=== PATIENT | female | born 1960 | race Caucasian/White ===

== ENCOUNTER 2016-11-02 09:40 | Emergency (ER) | payer SELFPAY ==
[~2016-11-02] VITALS: Ht 170.2 cm; Wt 55.0 kg
[~2016-11-02 09:40] MED LIST: DILA4TAB2 PO; GABA600T PO; MELO-1 PO
[2016-11-02 09:44] VITALS: BP 123/70; PULSE 71; RESP 14; TEMP 97.8; O2SAT 99
--- NOTE | 2016-11-02 10:04 | PD ---
HPI Chief Complaint: Skin Problem Time Seen by Provider: 09:58 Travel History International Travel<30 days: No Contact w/Intl Traveler<30days: No Traveled to known affect area: No History of Present Illness HPI This is a 56-year-old female who presents to the emergency department with 3 days of swelling and pain in her right thumb, constant, moderate severity, worsening. She denies any fevers or chills. She thinks she got bit by a caterpillar 3 days ago. She has no history of diabetes or IV drug use. PFSH Past Medical History Arthritis: Yes Asthma: No Anxiety: Yes Depression: Yes Cardiovascular Problems: No COPD: No Cerebrovascular Accident: No Diabetes: No Diminished Hearing: No Endocrine: No GERD: No Genitourinary: No Headaches: No Hepatitis: Yes (+ HEP C) Hiatal Hernia: No Immune Disorder: No Musculoskeletal: Yes ("herniated discs in back", CHRONIC BACK PAIN) Neurologic: Yes Psychiatric: Yes Reproductive: No Respiratory: No Immunizations Current: Yes Migraines: No Seizures: No Sleep Apnea: No Ulcer: No Tetanus Vaccination: Unknown Influenza Vaccination: Yes ?: Not Menopausal: Yes : 2 Para: 0 Miscarriage: 1 : 1 Ovarian Cysts: Yes Tubal Ligation: Yes (1998) Past Surgical History Surgical History: No Previous Surgery Abdominal Surgery: No Cardiac Surgery: No Ear Surgery: No Eye Surgery: No Gynecologic Surgery: No Oral Surgery: No Thoracic Surgery: No Other Surgery: Yes Social History Alcohol Use: No Tobacco Use: Yes (07/25 PPD) Substance Use: No Allergies-Medications (Allergen,Severity, Reaction): Coded Allergies: No Known Allergies (Unverified , 11/02/16) Reported Meds & Prescriptions Reported Meds & Active Scripts Active No Active Prescriptions or Reported Medications Review of Systems Except as stated in HPI: all other systems reviewed are Neg Physical Exam Narrative GENERAL:Well appearing, no acute distress SKIN: Swelling and fullness involving the lateral aspect of the right thumb with erythema adjacent to the nail bed HEAD: Atraumatic. Normocephalic. EYES: Pupils equal and round. No injection or drainage. ENT: Moist mucous membranes NECK: Trachea midline. CARDIOVASCULAR: Regular rate and rhythm. No murmur appreciated. Normal capillary refill in the right thumb. RESPIRATORY: Clear to auscultation. Breath sounds equal bilaterally. GASTROINTESTINAL: Abdomen soft, non-tender, nondistended. MUSCULOSKELETAL: Full painless range of motion of the right interphalangeal joint. No swelling on the flexor surface of the right thumb. NEUROLOGICAL: Awake and alert. No obvious cranial nerve deficits. Moving all extremities. PSYCHIATRIC: Appropriate mood and affect; insight and judgment normal. Data Data Last Documented VS Vital Signs Date Time Temp Pulse Resp B/P Pulse Ox O2 Delivery O2 Flow Rate FiO2 11/02/16 10:00 17 11/02/16 09:44 97.8 71 123/70 99 Room Air Orders Lidocaine Pf 1% Inj (Xylocaine-Mpf 1% In (11/02/16 10:15) MDM Medical Decision Making Medical Screen Exam Complete: Yes Emergency Medical Condition: Yes Differential Diagnosis Paronychia, felon, flexor tenosynovitis Narrative Course This is a 56-year-old female who presents to the emergency department with pain and swelling of her thumb and a physical exam consistent with a paronychia. She has no signs or symptoms of flexor` tenosynovitis. Incision and drainage was performed. Patient will be discharged with oral antibiotics and referred to hand surgery as needed. Diagnosis Primary Impression: Paronychia Qualified Code: L03.011 - Paronychia, right Referrals: Giuliano Calderón MD Patient Instructions: General Instructions Additional Instructions: If you develop fever, chills, increasing swelling of your finger, severe pain or inability to bend your thumb return to the emergency department. follow up with a hand doctor if your symptoms are not improved. Complete your course of antibiotics. Med/Other Pt SpecificInfo: Prescription(s) given Scripts Sulfamethoxazole-Trimethoprim (Bactrim DS)800-160 Mg Tab1 Tab PO BID #14 TAB Ref 0 Prov:Kyra Harkins MD 11/02/16 Cephalexin (Keflex)500 Mg [id number] Mg PO Q12H 7 Days Ref 0 Prov:Kyra Harkins MD 11/02/16 Disposition: 01 DISCHARGE HOME Condition: Stable Kyra Harkins MD Nov 02, 2016 10:04
[2016-11-02] MEDS ORDERED: LIDOCAINE HCL 1% PF 30 ML VIAL NERV BLOCK ONE (10:15)
--- NOTE | 2016-11-02 10:46 | PD ---
Physical Exam Date Seen by Provider: Nov 02, 2016 Time Seen by Provider: 10:45 Narrative I was asked by Dr. Harkins to incise and drain paryonchia to the patient's right lateral nailbed. Patient gives verbal consent for procedure. Please see Dr. Harkins's note for further history and physical. Data Data Last Documented VS Vital Signs Date Time Temp Pulse Resp B/P Pulse Ox O2 Delivery O2 Flow Rate FiO2 11/02/16 10:00 17 11/02/16 09:44 97.8 71 123/70 99 Room Air Orders Lidocaine Pf 1% Inj (Xylocaine-Mpf 1% In (11/02/16 10:15) MDM Medical Record Reviewed: Yes Supervised Visit with GEOVANNI: No Procedures Procedure Narrative INCISION AND DRAINAGE OF ABSCESS: The area was prepped and was sterilely draped. A digital block with 1% lidocaine] mL was used to anesthetize the area. The area was properly anesthetized. A number 11 scalpel was used to make a 0.5 -cm incision across the area of the abscess. Cultures were obtained. The abscess was drained an irrigated with normal saline. Sterile dressing applied. Scripts No Active Prescriptions or Reported Meds Julee Rodriguez Nov 02, 2016 10:46
[2016-11-02] MEDS ORDERED: BACT800T5 PO (10:50)
[2016-11-02] MEDS ORDERED: CEPH-460 PO (10:50)
== END 2016-11-02 11:02 | disposition home or self-care (01) ==
LOC: NEPD 09:40
DX: L03.011 Cellulitis of right finger (principal); F41.9 Anxiety disorder, unspecified; F32.9 Major depressive disorder, single episode, unspecified; B95.62 Methicillin resistant Staphylococcus aureus infection as the cause of diseases classified elsewhere
CPT/HCPCS: 26010; 86403; 87070; 87186

== ENCOUNTER 2016-12-10 06:37 | Emergency (ER) | payer SELFPAY ==
[~2016-12-10] VITALS: Ht 170.2 cm; Wt 55.6 kg
[~2016-12-10 06:37] MED LIST changes: +BACT800T5 PO; +CEPH-460 PO; -DILA4TAB2 PO; -GABA600T PO; -MELO-1 PO
[2016-12-10 06:47] VITALS: BP 103/71; PULSE 69; RESP 14; TEMP 98.2; O2SAT 96
[2016-12-10] MEDS ORDERED: GABA100C4 PO (07:46)
[2016-12-10] MEDS ORDERED: DILA4TAB2 PO (07:46)
[2016-12-10] MEDS ORDERED: MELO-1 PO (07:46)
[2016-12-10] MEDS ORDERED: BACT800T5 PO (08:10)
== END 2016-12-10 06:53 | disposition left against medical advice (07) ==
LOC: PHED 06:37
DX: Z53.20 Procedure and treatment not carried out because of patient's decision for unspecified reasons (principal)
CPT/HCPCS: 99281

== ENCOUNTER 2016-12-10 07:27 | Emergency (ER) | payer SELFPAY ==
[~2016-12-10] VITALS: Ht 170.2 cm; Wt 56.0 kg
[2016-12-10 07:30] VITALS: BP 119/73; PULSE 67; RESP 15; TEMP 98; O2SAT 97
[2016-12-10] MEDS ORDERED: DILA4TAB2 PO (07:46)
[2016-12-10] MEDS ORDERED: GABA100C4 PO (07:46)
[2016-12-10] MEDS ORDERED: MELO-1 PO (07:46)
[2016-12-10 07:56] LABS: GLUCOSE,URINE NEG (NEG); KETONE, URINE NEG (NEG); PH, URINE 5.5 (5.0-8.5)
[2016-12-10 07:57] LABS: BLOOD, URINE MOD (NEG); NITRITE,URINE POS (NEG)
[2016-12-10 08:04] LABS: METHOD OF COLLECTION CLEAN CATCH; URINE COLOR YELLOW (YELLW/STRAW)
[2016-12-10 08:05] LABS: BACTERIA, URINE MANY /hpf; COMMENT (UR) CULTURE INDICATED; CULTURE IF INDICATED CULTURE INDICATED; SQUAMOUS EPITHELIAL CELL URINE > 8 /hpf (0-5)
[2016-12-10] MEDS ORDERED: BACT800T5 PO (08:10)
--- NOTE | 2016-12-10 08:10 | PD ---
HPI Chief Complaint: Complaint Time Seen by Provider: 08:04 Travel History International Travel<30 days: No Contact w/Intl Traveler<30days: No Traveled to known affect area: No History of Present Illness HPI 56-year-old female complains of dysuria and frequency. Patient states that the symptoms started a week ago. Patient denies any fever chills. Patient states that she has some mild aching pain low back area. Patient denies any headache. Patient denies any chest pain or shortness of breath. Patient denies abdominal pain. Patient denies vaginal discharge or bleeding. Patient denies any chance of being . PFSH Past Medical History Arthritis: Yes Asthma: No Anxiety: Yes Depression: Yes Cardiovascular Problems: No COPD: No Cerebrovascular Accident: No Diabetes: No Diminished Hearing: No Endocrine: No GERD: No Genitourinary: No Headaches: No Hepatitis: Yes (+ HEP C) Hiatal Hernia: No Immune Disorder: No Musculoskeletal: Yes ("herniated discs in back", CHRONIC BACK PAIN) Neurologic: Yes Psychiatric: Yes Reproductive: No Respiratory: No Immunizations Current: Yes Migraines: No Seizures: No Sleep Apnea: No Ulcer: No Influenza Vaccination: Yes ?: Not Menopausal: Yes : 2 Para: 0 Miscarriage: 1 : 1 Ovarian Cysts: Yes Tubal Ligation: Yes (1998) Past Surgical History Abdominal Surgery: No Cardiac Surgery: No Ear Surgery: No Eye Surgery: No Gynecologic Surgery: No Oral Surgery: No Thoracic Surgery: No Other Surgery: Yes Social History Alcohol Use: No Tobacco Use: Yes (/2 PPD) Substance Use: No Allergies-Medications (Allergen,Severity, Reaction): Coded Allergies: *MDRO Multi-Drug Resistant Organism (Verified Adverse Reaction, Unknown, ) 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/16 Reported Meds & Prescriptions Reported Meds & Active Scripts Active Bactrim DS (Sulfamethoxazole-Trimethoprim) 800-160 Mg Tab 1 Tab PO BID Reported Gabapentin 100 Mg Cap 100 Mg PO DAILY Dilaudid (Hydromorphone HCl) 4 Mg Tab 4 Mg PO Q6H PRN Meloxicam 15 Mg Tab 15 Mg PO DAILY Review of Systems General / Constitutional: No: Fever Eyes: No: Visual changes HENT: No: Headaches Cardiovascular: No: Chest Pain or Discomfort Respiratory: No: Shortness of Breath Gastrointestinal: No: Abdominal Pain Genitourinary: Positive: Frequency, Dysuria Musculoskeletal: No: Pain Skin: No Rash Neurologic: No: Weakness Psychiatric: No: Depression Endocrine: No: Polydipsia Hematologic/Lymphatic: No: Easy Bruising Physical Exam Narrative GENERAL: Well-nourished, well-developed patient. SKIN: Focused skin assessment warm/dry. HEAD: Normocephalic. EYES: No scleral icterus. No injection or drainage. NECK: Supple, trachea midline. No JVD or lymphadenopathy. CARDIOVASCULAR: Regular rate and rhythm without murmurs, gallops, or rubs. RESPIRATORY: Breath sounds equal bilaterally. No accessory muscle use. GASTROINTESTINAL: Abdomen soft, non-tender, nondistended. MUSCULOSKELETAL: No cyanosis, or edema. BACK: Nontender without obvious deformity. No CVA tenderness. Neurologic exam normal. Data Data Last Documented VS Vital Signs Date Time Temp Pulse Resp B/P Pulse Ox O2 Delivery O2 Flow Rate FiO2 12/10/16 07:30 98.0 67 15 119/73 97 Orders Urinalysis - C+S If Indicated (12/10/16 07:36) Urine Culture (12/10/16 07:40) Labs Laboratory Tests Test 12/10/16 07:40 Urine Collection Type CLEAN CATCH Urine Color YELLOW Urine Turbidity MOD Urine pH 5.5 Urine Specific [place] 1.015 Urine Protein TRACE mg/dL Urine Glucose (UA) NEG mg/dL Urine Ketones NEG mg/dL Urine Occult Blood MOD Urine Nitrite POS Urine Bilirubin NEG Urine Leukocyte Esterase SMALL Urine RBC 4-9 /hpf Urine WBC 20-24 /hpf Urine WBC Clumps FEW Urine Squamous Epithelial > 8 /hpf Cells Urine Amorphous Sediment FEW Urine Bacteria MANY /hpf Microscopic Urinalysis Comment CULTURE INDICATED Urine Collection Time 0740 [facility] Medical Decision Making Medical Screen Exam Complete: Yes Emergency Medical Condition: Yes Interpretation(s) 8:11 AM. UA positive with WBC and bacteria. Differential Diagnosis Differential diagnosis including UTI, pyelonephritis, nephrolithiasis. Narrative Course 56-year-old female with dysuria and frequency. Diagnosis Primary Impression: UTI (urinary tract infection) Qualified Code: N30.00 - Acute cystitis without hematuria Additional Instructions: Bactrim DS as directed. Follow-up with personal physician. Return if worse. Med/Other Pt SpecificInfo: Prescription(s) given Scripts Sulfamethoxazole-Trimethoprim (Bactrim DS)800-160 Mg Tab1 Tab PO BID #14 TAB Prov:Patrick Cross MD 12/10/16 Disposition: 01 DISCHARGE HOME Condition: Stable Patrick Cross MD December 10, 2016 08:10
== END 2016-12-10 08:19 | disposition home or self-care (01) ==
LOC: PHED 07:27
DX: N30.00 Acute cystitis without hematuria (principal); B96.29 Other Escherichia coli [E. coli] as the cause of diseases classified elsewhere; F17.210 Nicotine dependence, cigarettes, uncomplicated; F41.8 Other specified anxiety disorders; Z86.19 Personal history of other infectious and parasitic diseases
CPT/HCPCS: 81001; 87077; 87086; 87186; 99283

== ENCOUNTER 2016-12-17 08:52 | Emergency (ER) | payer SELFPAY ==
[~2016-12-17] VITALS: Ht 170.2 cm; Wt 54.0 kg
[~2016-12-17 08:52] MED LIST changes: -CEPH-460 PO; +DILA4TAB2 PO; +GABA100C4 PO; +MELO-1 PO
[2016-12-17 08:54] VITALS: BP 113/84; PULSE 69; RESP 16; TEMP 98.3; O2SAT 98
--- NOTE | 2016-12-17 09:26 | PD ---
HPI . Right eye swelling Chief Complaint: Eye Problems/Injury Time Seen by Provider: 09:18 Travel History International Travel<30 days: No Contact w/Intl Traveler<30days: No Traveled to known affect area: No History of Present Illness HPI Patient presents complaining with itching and swelling of her right upper eyelid. Nurse got the history that it started yesterday. The patient told me that she awakened with it this morning. Nonetheless, it is getting better. She has treated it with a warm compress which seems to have helped. She thinks that she may have been bitten by a bug. She does not have any discharge from her eye and she does not have any visual complaints. PFSH Past Medical History Arthritis: Yes Asthma: No Anxiety: Yes Depression: Yes Cardiovascular Problems: No COPD: No Cerebrovascular Accident: No Diabetes: No Diminished Hearing: No Endocrine: No Gastrointestinal Disorders: No GERD: No Genitourinary: No Headaches: No Hepatitis: Yes (+ HEP C) Hiatal Hernia: No Immune Disorder: No Implanted Vascular Access Dvce: No Musculoskeletal: Yes ("herniated discs in back", CHRONIC BACK PAIN) Neurologic: Yes Psychiatric: Yes Reproductive: No Respiratory: No Immunizations Current: Yes Migraines: No Seizures: No Sleep Apnea: No Ulcer: No ?: Not LMP: MENOPAUSAL Menopausal: Yes : 2 Para: 0 Miscarriage: 1 : 1 Ovarian Cysts: Yes Tubal Ligation: Yes (1998) Past Surgical History Abdominal Surgery: No Cardiac Surgery: No Ear Surgery: No Eye Surgery: No Gynecologic Surgery: No Neurologic Surgery: No Oral Surgery: No Thoracic Surgery: No Other Surgery: Yes Social History Alcohol Use: No Tobacco Use: Yes (07/25 PPD) Substance Use: No Allergies-Medications (Allergen,Severity, Reaction): Coded Allergies: *MDRO Multi-Drug Resistant Organism (Verified Adverse Reaction, Unknown, ) 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 SKIN: Warm and dry. HEAD: Atraumatic. Normocephalic. EYES: Pupils equal and round. She has swelling of the upper eyelid. I do not see a stye. I have everted the lid. She does appear to have a bug bite on the lid. NECK: Trachea midline. CARDIOVASCULAR: Regular rate and rhythm. RESPIRATORY: No accessory muscle use. MUSCULOSKELETAL: No obvious deformities. No edema. NEUROLOGICAL: Awake and alert. No obvious cranial nerve deficits. Motor grossly within normal limits. Normal speech. PSYCHIATRIC: Appropriate mood and affect; insight and judgment normal. Data Data Last Documented VS Vital Signs Date Time Temp Pulse Resp B/P Pulse Ox O2 Delivery O2 Flow Rate FiO2 12/17/16 08:54 98.3 69 16 113/84 98 MDM Medical Decision Making Medical Screen Exam Complete: Yes Emergency Medical Condition: Yes Differential Diagnosis My differential diagnosis of eyelid swelling includes but is not limited to allergic reaction, stye, cellulitis Narrative Course Patient presents with itching and swelling of her right upper eyelid. Exam is typical of a localized reaction. Diagnosis Primary Impression: Local reaction to insect sting Qualified Code: T63.481A - Local reaction to insect sting, accidental or unintentional, initial encounter Patient Instructions: General Instructions, Insect Bite or Sting (DC) Additional Instructions: Benadryl, 2 every 4 hours as needed for itching and swelling. Cool compresses to the eye as needed for swelling. Disposition: 01 DISCHARGE HOME Condition: Stable Lesia English MD December 17, 2016 09:26
== END 2016-12-17 09:42 | disposition home or self-care (01) ==
LOC: PHED 08:52
DX: H02.841 Edema of right upper eyelid (principal); T63.481A Toxic effect of venom of other arthropod, accidental (unintentional), initial encounter; F17.210 Nicotine dependence, cigarettes, uncomplicated; W57.XXXA Bitten or stung by nonvenomous insect and other nonvenomous arthropods, initial encounter
CPT/HCPCS: 99282

== ENCOUNTER 2016-12-26 07:45 | Emergency (ER) | payer SELFPAY ==
[~2016-12-26] VITALS: Ht 170.2 cm; Wt 55.1 kg
[2016-12-26 07:49] VITALS: BP 118/86; PULSE 72; RESP 16; TEMP 98.7; O2SAT 99
[2016-12-26 08:12] LABS: GLUCOSE,URINE NEG (NEG); KETONE, URINE NEG (NEG)
[2016-12-26] MEDS ORDERED: MACR100C2 PO (08:16)
--- NOTE | 2016-12-26 08:16 | PD ---
HPI Chief Complaint: Complaint Time Seen by Provider: 08:08 Travel History International Travel<30 days: No Contact w/Intl Traveler<30days: No Traveled to known affect area: No History of Present Illness HPI So 56 year-old woman presents emergent department complaining of urinary symptoms. She was seen December 10, fell 2 weeks ago, with urinary symptoms. She has a urinalysis that was positive and a culture likely Escherichia coli. She was placed on Bactrim. Ultimately her Escherichia coli was resistant to Bactrim. Patient took about 4 pills before inadvertently been antibiotics [place] state. She presents back to the emergency department she still having burning with urination frequency and some suprapubic pressure. No vaginal discharge or vaginal bleeding. No fevers or chills. No back pain or abdominal pain. 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 SKIN: Focused skin assessment warm/dry. HEAD: Atraumatic. Normocephalic. CARDIOVASCULAR: Regular rate and rhythm. No murmur appreciated. RESPIRATORY: No accessory muscle use. Clear to auscultation. Breath sounds equal bilaterally. GASTROINTESTINAL: Abdomen soft, non-tender, nondistended. Hepatic and splenic margins not palpable. No CVA tenderness to percussion. MUSCULOSKELETAL: No obvious deformities. Data Data Last Documented VS Vital Signs Date Time Temp Pulse Resp B/P Pulse Ox O2 Delivery O2 Flow Rate FiO2 12/26/16 07:49 98.7 72 16 118/86 99 Orders Urinalysis - C+S If Indicated (12/26/16 08:00) Nitrofurantoin Monohyd Macrocr (Macrobid (12/26/16 08:30) Urine Culture (12/26/16 08:02) Labs Laboratory Tests Test 12/26/16 08:02 Urine Color YELLOW Urine Turbidity HAZY Urine pH 6.0 Urine Specific [place] 1.024 Urine Protein TRACE mg/dL Urine Glucose (UA) NEG mg/dL Urine Ketones NEG mg/dL Urine Occult Blood MOD Urine Nitrite POS Urine Bilirubin NEG Urine Leukocyte Esterase TRACE Urine RBC 4-9 /hpf Urine WBC 9-14 /hpf Urine Squamous Epithelial 0-5 /hpf Cells Urine Bacteria MOD /hpf Urine Mucus FEW /lpf Microscopic Urinalysis Comment CULTURE INDICATED MDM Medical Decision Making Medical Screen Exam Complete: Yes Emergency Medical Condition: Yes Interpretation(s) UA: Pyuria, minimal hematuria, some bacteria. Differential Diagnosis UTI, cervicitis, other Narrative Course Medical decision-making n 56 old woman with UTI symptoms. Denies any vaginal discharge. Previous UA was positive for Escherichia coli resistant to Bactrim. We'll treat with Macrobid. Outpatient follow-up. Diagnosis Primary Impression: UTI (urinary tract infection) Additional Instructions: Take Macrobid as prescribed. Follow-up with your primary doctor in the next 2-4 days every not feeling completely well. Return to the emergency department for any new or worsening symptoms. Med/Other Pt SpecificInfo: Prescription(s) given Scripts Nitrofurantoin Monohydrate Macrocrystals (Macrobid)100 Mg [id number] Mg PO BID 7 Days Ref 0 Prov:Jose Gillis MD 12/26/16 Disposition: 01 DISCHARGE HOME Condition: Stable Jose Gillis MD Dec 26, 2016 08:16
[2016-12-26 08:21] LABS: BLOOD, URINE MOD (NEG); NITRITE,URINE POS (NEG)
[2016-12-26] MEDS ORDERED: NITROFURANTOIN MONOHYD MACROCR 100 MG CAP PO ONE (08:30)
[2016-12-26 08:53] LABS: MUCUS URINE FEW /lpf (OCC); URINE COLOR YELLOW (YELLW/STRAW)
[2016-12-26 08:54] LABS: SQUAMOUS EPITHELIAL CELL URINE 0-5 /hpf (0-5)
[2016-12-26 08:55] LABS: BACTERIA, URINE MOD /hpf; COMMENT (UR) CULTURE INDICATED; CULTURE IF INDICATED CULTURE INDICATED
== END 2016-12-26 08:51 | disposition home or self-care (01) ==
LOC: PHED 07:45
DX: N39.0 Urinary tract infection, site not specified (principal); B96.20 Unspecified Escherichia coli [E. coli] as the cause of diseases classified elsewhere; F17.210 Nicotine dependence, cigarettes, uncomplicated
CPT/HCPCS: 81001; 87077; 87086; 87186; 99283

== ENCOUNTER 2017-06-05 04:17 | Emergency (ER) | payer SELFPAY ==
[~2017-06-05] VITALS: Ht 170.2 cm; Wt 58.0 kg
[~2017-06-05 04:17] MED LIST changes: +DILA4TAB10 PO; -DILA4TAB2 PO; +MACR100C2 PO; -MELO-1 PO; +MELO15TA20 PO
[2017-06-05 04:27] VITALS: BP 144/80; PULSE 77; RESP 18; TEMP 100.6; O2SAT 97
[2017-06-05 04:34] VITALS: O2SAT 96
[2017-06-05] MEDS ORDERED: SODIUM CHLOR 0.9% 1000 ML INJ 1,000 ML IV ONE (04:45)
[2017-06-05] MEDS ORDERED: ACETAMINOPHEN 325 MG TAB PO ONE (04:45)
--- NOTE | 2017-06-05 04:47 | PD ---
HPI Chief Complaint: Cold / Flu Symptoms Time Seen by Provider: 04:28 Travel History International Travel<30 days: No Contact w/Intl Traveler<30days: No Traveled to known affect area: No History of Present Illness HPI The patient is a 56 year old female who presents to the [facility] emergency department with a history of cough, congestion, headache, and shortness of breath that began this morning. She had a fever with a tmax of 104. She has had n/v x1. She has had diarrhea x1 today. She has had a cough productive of yellow to wisdom phlegm. On review of systems, the patient denies having any worsening or new neck pain, chest pain, abdominal pain, urinary symptoms, or neurologic symptoms. She is followed by Dr. Herrera- Pain management in [place], [place]. [facility] Past Medical History Narrative Medical The patient's past medical history is significant for chronic pain, hepatitis C , IVDU- Dilaudid- last used IV one month ago. 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 Reported Meds & Prescriptions Reported Meds & Active Scripts Active Macrobid (Nitrofurantoin Monohydrate Macrocrystals) 100 Mg Capsule 100 Mg PO BID 7 Days Bactrim DS (Sulfamethoxazole-Trimethoprim) 800-160 Mg Tab 1 Tab PO BID Reported Gabapentin 100 Mg Cap 100 Mg PO DAILY Dilaudid (Hydromorphone HCl) 4 Mg Tab 4 Mg PO Q6H PRN Meloxicam 15 Mg Tab 15 Mg PO DAILY Review of Systems Except as stated in HPI: all other systems reviewed are Neg General / Constitutional: Positive: Fever Eyes: No: Visual changes HENT: Positive: Congestion, No: Headaches Cardiovascular: Positive: Dyspnea on exertion, No: Chest Pain or Discomfort Respiratory: Positive: Cough, Shortness of Breath Gastrointestinal: Positive: Nausea, Vomiting, Diarrhea, No: Abdominal Pain, Hematemesis, Hematochezia, Indigestion, Loss of Appetite Genitourinary: No: Dysuria Musculoskeletal: No: Pain Skin: No Rash Neurologic: No: Weakness Psychiatric: No: Depression Endocrine: No: Polydipsia Hematologic/Lymphatic: No: Easy Bruising Physical Exam Narrative General: The patient is a well-developed well-nourished female in no acute distress. Head and Neck exam: Head is normocephalic atraumatic. Eyes: EOMI, pupils are equal round and reactive to light. Nose: Midline septum with pink mucous membranes Mouth: Dentition unremarkable. Moist mucus membranes. Posterior oropharynx is not erythematous. No tonsillar hypertrophy. Uvula midline. Airway patent. Neck: No palpable lymphadenopathy. No nuchal rigidity. No thyromegaly. Cardiovascular: Regular rate and rhythm without murmurs, gallops, or rubs. No pulse deficit to the extremities on simultaneous auscultation and palpation of her radial artery. Lungs: Clear to auscultation bilaterally. No wheezes, rhonchi, or rales. Abdomen: Soft, without tenderness to palpation in all 4 quadrants of the abdomen. No guarding, rebound, or rigidity. Normal bowel sounds are audible. No tenderness on palpation of McBurney's point. Extremities: No clubbing, cyanosis, or edema. 2+ pulses in all 4 extremities. No calf tenderness on palpation. Back: No spinous process tenderness to palpation. No costovertebral angle tenderness to palpation. Neurologic Exam: Grossly nonfocal. Skin Exam: No rash noted. Intact skin that is warm and dry. Data Data Last Documented VS Vital Signs Date Time Temp Pulse Resp B/P (MAP) Pulse Ox O2 Delivery O2 Flow Rate FiO2 06/05/17 04:34 96 Room Air 06/05/17 04:30 80 18 06/05/17 04:27 100.6 144/80 (101) Orders Orders Electrocardiogram (06/05/17 04:31) Complete Blood Count With Diff (06/05/17 04:31) Comprehensive Metabolic Panel (06/05/17 04:31) Creatine Kinase (Cpk) (06/05/17 04:31) Ckmb (Isoenzyme) Profile (06/05/17 04:31) Troponin I (06/05/17 04:31) B-Type Natriuretic Peptide (06/05/17 04:31) Blood Culture (06/05/17 04:31) Urinalysis - C+S If Indicated (06/05/17 04:31) Westergren Sedimentation Rate (06/05/17 04:31) Magnesium (Mg) (06/05/17 04:31) Influenzae A/B Antigen (06/05/17 04:31) Chest, Single Ap (06/05/17 04:31) Iv Access Insert/Monitor (06/05/17 04:31) Ecg Monitoring (06/05/17 04:31) Oximetry (06/05/17 04:31) Lactic Acid Sepsis Protocol (06/05/17 04:31) Acetaminophen (Tylenol) (06/05/17 04:45) Sodium Chlor 0.9% 1000 Ml Inj (Ns 1000 M (06/05/17 04:45) Ct Pulmonary Angiogram (06/05/17 06:28) Labs Laboratory Tests Test 06/05/17 05:14 White Blood Count 3.6 TH/MM3 Red Blood Count 4.65 MIL/MM3 Hemoglobin 12.5 GM/DL Hematocrit 37.7 % Mean Corpuscular Volume 81.0 FL Mean Corpuscular Hemoglobin 26.9 PG Mean Corpuscular Hemoglobin Concent 33.2 % Red Cell Distribution Width 15.9 % Platelet Count 181 TH/MM3 Mean Platelet Volume 8.3 FL Neutrophils (%) (Auto) 76.5 % Lymphocytes (%) (Auto) 12.5 % Monocytes (%) (Auto) 10.6 % Eosinophils (%) (Auto) 0.1 % Basophils (%) (Auto) 0.3 % Neutrophils # (Auto) 2.8 TH/MM3 Lymphocytes # (Auto) 0.5 TH/MM3 Monocytes # (Auto) 0.4 TH/MM3 Eosinophils # (Auto) 0.0 TH/MM3 Basophils # (Auto) 0.0 TH/MM3 CBC Comment DIFF FINAL Differential Comment Erythrocyte Sedimentation Rate 23 mm/hr Urine Color YELLOW Urine Turbidity HAZY Urine pH 6.0 Urine Specific [place] 1.021 Urine Protein TRACE mg/dL Urine Glucose (UA) NEG mg/dL Urine Ketones NEG mg/dL Urine Occult Blood SMALL Urine Nitrite NEG Urine Bilirubin NEG Urine Urobilinogen LESS THAN 2.0 MG/DL Urine Leukocyte Esterase NEG Urine RBC 9 /hpf Urine WBC 2 /hpf Urine Squamous Epithelial Cells 4 /hpf Urine Amorphous Sediment RARE Urine Mucus FEW /lpf Microscopic Urinalysis Comment CULT NOT INDICATED Blood Urea Nitrogen 10 MG/DL Creatinine 0.81 MG/DL Random Glucose 89 MG/DL Total Protein 8.0 GM/DL Albumin 3.4 GM/DL Calcium Level 8.1 MG/DL Magnesium Level 2.0 MG/DL Alkaline Phosphatase 85 U/L Aspartate Amino Transf (AST/SGOT) 25 U/L Alanine Aminotransferase (ALT/SGPT) 19 U/L Total Bilirubin 0.3 MG/DL Sodium Level 138 MEQ/L Potassium Level 3.7 MEQ/L Chloride Level 105 MEQ/L Carbon Dioxide Level 25.4 MEQ/L Anion Gap 8 MEQ/L Estimat Glomerular Filtration Rate 74 ML/MIN Lactic Acid Level 0.7 mmol/L Total Creatine Kinase 83 U/L Troponin I LESS THAN 0.02 NG/ML B-Type Natriuretic Peptide 41 PG/ML MDM Medical Decision Making Medical Screen Exam Complete: Yes Emergency Medical Condition: Yes Medical Record Reviewed: Yes Interpretation(s) Last Impressions Chest X-Ray 06/05/17 0431 Signed Impressions: Service Date/Time: Monday, June 05, 2017 04:52 - CONCLUSION: Normal examination. Jose Nobles MD Differential Diagnosis Pneumonia, versus influenza, versus endocarditis, versus septic emboli Narrative Course During the course of the patients emergency department visit, the patients history, examination, and differential diagnosis were reviewed with the patient. The patient was placed on a quality assurance monitor chassis with oximetry and frequent blood pressure monitoring. The patient had IV access obtained and blood work sent for analysis. The patient had an ECG done on arrival that shows a sinus rhythm heart rate of 78, no acute ST segment elevation or depression. QRS duration is 92 ms, QTC 385 ms. The patient was initially provided Tylenol for fever at 650 by mouth 1, normal saline a 1 L IV fluid bolus The patients laboratory studies were reviewed and remarkable for a white count of 3.6, hemoglobin 12.5, platelets 181 with neutrophils 76.5, monocytes 10.6, sedimentation rate 23 decreased the likelihood of endocarditis, CMP is within normal limits except for a GFR 74, CPK 83, troponin I less than 0.02, BNP 41, lactic acid 0.7, urinalysis shows small occult blood, 9 RBCs. Influenza testing was negative. Radiology studies were reviewed and remarkable for a chest x-ray shows a normal examination. CTA to rule out PE was ordered. The patient decided that she did not want to wait any longer. The patient was instructed that her symptoms could be related to endocarditis, versus septic emboli, versus underlying pneumonia, versus pulmonary embolism. The patient continues to wish to leave AGAINST MEDICAL ADVICE. The patient is alert and oriented to person, place, time, and situation. In spite of this she is requesting to sign out. AMA: The risks of leaving against medical advice without further evaluation treatment were discussed with the patient. These risks include cardiac dysfunction, cardiac dysrhythmia, possible heart attack, respiratory failure, hypoxic brain injury. The patient indicated understanding of these risks and appeared to have the capacity to make this decision. Diagnosis Primary Impression: Febrile illness Additional Impression: Shortness of breath Referrals: Primary Care Physician 1 day Patient Instructions: Fever in Adults (ED), General Instructions, Shortness of Breath (ED) Med/Other Pt SpecificInfo: No Change to Meds Disposition: 07 AGAINST MEDICAL ADVICE Condition: Stable Rachel Dunn MD Jun 05, 2017 04:47
[2017-06-05 05:43] LABS: AUTOMATED NEUTROPHIL # 2.8 TH/MM3 (1.8-7.7); BASOPHIL % 0.3 % (0.0-2.0); EOSINOPHIL % 0.1 % (0.0-4.0); HEMATOCRIT 37.7 % (35.0-46.0); HEMO FLAGS DIFF FINAL; LYMPH % 12.5 % (9.0-44.0); LYMPHOCYTE # 0.5 TH/MM3 (1.0-4.8); MEAN CORPUSCULAR HEMOGLOBIN 26.9 PG (27.0-34.0); MEAN CORPUSCULAR HGB CONC 33.2 % (32.0-36.0); MONO % 10.6 % (0.0-8.0); NEUT % 76.5 % (16.0-70.0); PLATELET COUNT 181 TH/MM3 (150-450); RED BLOOD COUNT 4.65 MIL/MM3 (4.00-5.30); RED CELL DISTRIBUTION WIDTH 15.9 % (11.6-17.2); WHITE BLOOD COUNT 3.6 TH/MM3 (4.0-11.0)
[2017-06-05 05:48] LABS: BLOOD, URINE SMALL (NEG); GLUCOSE,URINE NEG (NEG); KETONE, URINE NEG (NEG); MUCUS URINE FEW /lpf (OCC); NITRITE,URINE NEG (NEG); SQUAMOUS EPITHELIAL CELL URINE 4 /hpf (0-5); URINE COLOR YELLOW (YELLW/STRAW)
[2017-06-05 05:49] LABS: COMMENT (UR) CULT NOT INDICATED; CULTURE IF INDICATED CULT NOT INDICATED
--- NOTE | 2017-06-05 05:56 | RADRPT ---
EXAM DATE/TIME: 06/05/2017 04:52 [facility] COMPARISON: CHEST SINGLE AP, May 11, 2016, 21:15. INDICATIONS : Cough and fever MEDICAL HISTORY : None. SURGICAL HISTORY : None. ENCOUNTER: Initial ACUITY: 1 day PAIN SCORE: 7/10 LOCATION: Bilateral chest FINDINGS: A single view of the chest demonstrates the lungs to be symmetrically aerated without evidence of mas s, infiltrate or effusion. The cardiomediastinal contours are unremarkable. Numerous stable left-rayna ed rib healed fractures, unchanged CONCLUSION: Normal examination. Jose Nobles MD on June 05, 2017 at 5:54 Board Certified Radiologist. This report was verified electronically.
[2017-06-05 06:01] LABS: ALT (GPT) 19 U/L (10-53); ANION GAP 8 MEQ/L (5-15); AST (GOT) 25 U/L (15-37); BICARBONATE 25.4 MEQ/L (21.0-32.0); BLOOD UREA NITROGEN 10 MG/DL (7-18); CHLORIDE 105 MEQ/L (98-107); GLOMERULAR FILTRATION RATE 74 ML/MIN (>89); POTASSIUM 3.7 MEQ/L (3.5-5.1); SODIUM (NA) 138 MEQ/L (136-145)
[2017-06-05 06:04] LABS: ALKALINE PHOSPHATASE 85 U/L (45-117); TOTAL BILIRUBIN ADULT 0.3 MG/DL (0.2-1.0)
[2017-06-05 06:07] LABS: CREATINE KINASE 83 U/L (26-192)
--- NOTE | 2017-06-05 19:23 | EKG ---
Date Performed: 06/05/2017 Time Performed: 04:40:21 PTAGE: 56 years EKG: Sinus rhythm NORMAL ECG Since PREVIOUS TRACING , no significant change noted PREVIOUS TRACIN05/11/2016 21.18 DOCTOR: Jef Mullins Interpretating Date/Time 06/05/2017 19:21:50
== END 2017-06-05 08:46 | disposition left against medical advice (07) ==
LOC: NEPE 04:17
DX: R50.9 Fever, unspecified (principal); R06.02 Shortness of breath; R51 Headache; R05 Cough; R11.2 Nausea with vomiting, unspecified; R19.7 Diarrhea, unspecified; Z53.29 Procedure and treatment not carried out because of patient's decision for other reasons; Z72.0 Tobacco use; Z87.39 Personal history of other diseases of the musculoskeletal system and connective tissue; Z86.59 Personal history of other mental and behavioral disorders; Z86.19 Personal history of other infectious and parasitic diseases; Z87.448 Personal history of other diseases of urinary system; Z86.69 Personal history of other diseases of the nervous system and sense organs
CPT/HCPCS: 71010; 80053; 81001; 82550; 83605; 83735; 83880; 84484; 85025; 85652; 87040; 87804; 93005; 99285; J7030